=== PATIENT | female | born 2000 | race Caucasian/White ===

== ENCOUNTER 2018-03-30 11:26 | Observation (INO) | payer MEDICAID ==
[~2018-03-30] VITALS: Ht 160 cm; Wt 75.3 kg
[2018-03-30] MEDS ORDERED: FOLI-43 PO (12:29)
[2018-03-30] MEDS ORDERED: PREN-99 PO (12:32)
== END 2018-03-30 13:45 | disposition home or self-care (01) ==
LOC: L&D 11:26
PROVIDERS: ADMIT Obstetrics & Gynecology; ATTEND Obstetrics & Gynecology
DX: O36.8130 Decreased fetal movements, third trimester, not applicable or unspecified (principal); Z3A.37 37 weeks gestation of pregnancy
CPT/HCPCS: 76815; 76818; 99281; G0378

== ENCOUNTER 2018-04-03 19:03 | Observation (INO) | payer OTHER ==
[~2018-04-03] VITALS: Ht 154.9 cm; Wt 76.2 kg
[~2018-04-03 19:03] MED LIST: FOLI-43 PO; PREN-99 PO
== END 2018-04-03 20:20 | disposition home or self-care (01) ==
LOC: L&D 19:03
PROVIDERS: ADMIT Obstetrics & Gynecology; ATTEND Obstetrics & Gynecology
DX: O26.893 Other specified pregnancy related conditions, third trimester (principal); N89.8 Other specified noninflammatory disorders of vagina; R10.9 Unspecified abdominal pain; O48.0 Post-term pregnancy; Z3A.40 40 weeks gestation of pregnancy
CPT/HCPCS: 99281; G0378

== ENCOUNTER 2018-04-04 08:08 | Inpatient (IN) | payer OTHER ==
[~2018-04-04] VITALS: Ht 157.5 cm; Wt 76.2 kg
[2018-04-04] MEDS ORDERED: LACTATED RINGERS 1,000 ML IV SCH (09:34)
[2018-04-04] MEDS ORDERED: DEXT 5%/LR + PITOCIN 20UNITS/L 1,000 ML IV SCH ×3 (09:34→22:54)
[2018-04-04] MEDS ORDERED: BUTORPHANOL TARTRATE 2 MG/ML VIAL IV PRN (09:45)
[2018-04-04] MEDS ORDERED: METHYLERGONOVINE MALEATE 0.2 MG/ML IM PRN (09:45)
[2018-04-04] MEDS ORDERED: NALOXONE HCL 0.4 MG/ML 1ML VIAL IM PRN (09:45)
[2018-04-04] MEDS ORDERED: LIDOCAINE HCL 1% 20ML VIAL (Pyxis) INJ INFIL SCH (09:45)
[2018-04-04] MEDS ORDERED: CARBOPROST TROMETHAMINE 250 MCG/ML AMPUL IM PRN (09:45)
[2018-04-04 09:52] LABS: BASOPHILS % 0.5 % (0.0-2.0); EOSINOPHILS % 1.1 % (0.0-5.0); HEMATOCRIT. 35.4 % (36.0-48.0); HEMOGLOBIN. 11.8 g/dL (12.0-16.0); LYMPHOCYTES % 19.7 % (20.0-50.0); MEAN CORPUSCULAR HEMOGLOBIN 27.2 pg (28.0-32.0); MEAN CORPUSCULAR VOLUME 81.6 fL (81.0-99.0); MEAN PLATELET VOLUME 10.1 fl (7.4-10.4); NEUTROPHILS % 69.7 % (40.0-76.0); PLATELET 186 x1000/uL (130-400); RED BLOOD CELL COUNT 4.34 mill/uL (4.2-5.4)
[2018-04-04 10:10] LABS: PROTHROMBIN TIME 9.9 sec (9.4-11.6)
[2018-04-04 10:15] LABS: CLARITY URINE CLEAR (CLEAR); COLOR URINE YELLOW (YELLOW); KETONES URINE NEGATIVE (NEGATIVE); LEUKOCYTE ESTERASE URINE NEGATIVE (NEGATIVE); NITRITE URINE NEGATIVE (NEGATIVE); OCCULT BLOOD URINE NEGATIVE (NEGATIVE); PH URINE 6.5 (4.5-8.0); PROTEIN URINE NEGATIVE (NEGATIVE); UROBILINOGEN URINE 0.2 E.U./dL (0.2-1.0)
[2018-04-04] MEDS: LACTATED RINGERS 1,000 ML IV SCH ×3 (10:23→19:55)
[2018-04-04 10:44] LABS: *AMPHETAMINES SCREEN URINE NEGATIVE (NEGATIVE); *BARBITURATES SCREEN URINE NEGATIVE (NEGATIVE); *BENZODIAZEPINES SCREEN URINE NEGATIVE (NEGATIVE); *COCAINE SCREEN URINE NEGATIVE (NEGATIVE); CANNABINOID URINE SCREEN NEGATIVE (NEGATIVE); METHADONE URINE SCREEN NEGATIVE (NEGATIVE); OPIATES URINE SCREEN NEGATIVE (NEGATIVE)
[2018-04-04 10:45] LABS: PHENCYCLIDINE URINE SCREEN NEGATIVE (NEGATIVE)
[2018-04-04 12:30] LABS: HEPATITIS B SURFACE ANTIGEN NEGATIVE; RUBELLA IGG 55.1 IU/mL (4.99-10)
[2018-04-04] MEDS ORDERED: CITRIC ACID/SODIUM CITRATE SOLN 30ML UDC PO NR (19:45)
[2018-04-04] MEDS ORDERED: LIDOCAINE HCL 2%/EPINEPHRINE/PF 10 ML VIAL ONE ×2 (20:26→21:25)
[2018-04-04] MEDS ORDERED: SUCCINYLCHOLINE CHLORIDE 200MG/10ML VIAL IV ONE (20:26)
[2018-04-04] MEDS ORDERED: ETOMIDATE 2MG/ML 10ML VIAL IV ONE (20:26)
[2018-04-04] MEDS ORDERED: EPHEDRINE SULFATE 50MG/ML VIAL ONE (21:16)
[2018-04-04] MEDS ORDERED: ONDANSETRON HCL 4MG/2ML VIAL ONE (21:24)
[2018-04-04] MEDS ORDERED: FENTANYL CITRATE/PF 50MCG/ML 2ML VIAL ONE (21:26)
[2018-04-04] MEDS ORDERED: MORPHINE SULFATE/PF 1MG/ML 10ML AMP ONE (21:28)
[2018-04-04] MEDS ORDERED: LIDOCAINE HCL 2%/EPINEPHRINE/PF 10 ML VIAL INJ SCH (21:30)
[2018-04-04] MEDS ORDERED: ONDANSETRON HCL 4MG/2ML VIAL IV PRN (23:00)
[2018-04-04] MEDS ORDERED: DIPHENHYDRAMINE 25MG CAPSULE PO PRN (23:00)
[2018-04-04] MEDS ORDERED: RHO(D) IMMUNE GLOBULIN 300 MCG/SYR IM PRN (23:00)
[2018-04-04] MEDS ORDERED: LANOLIN OINT 0.25 GM TUBE TOP PRN (23:00)
[2018-04-05] VITALS (7 sets, daily range): BP systolic 101–114; BP diastolic 54–71
[2018-04-05] MEDS ORDERED: DIPHENHYDRAMINE 50MG/ML VIAL IV SCH (04:38)
[2018-04-05 07:14] LABS: BASOPHILS % 0.3 % (0.0-2.0); EOSINOPHILS % 0.5 % (0.0-5.0); HEMATOCRIT. 27.7 % (36.0-48.0); HEMOGLOBIN. 9.5 g/dL (12.0-16.0); LYMPHOCYTES % 15.1 % (20.0-50.0); MEAN CORPUSCULAR HEMOGLOBIN 28.2 pg (28.0-32.0); MEAN CORPUSCULAR VOLUME 81.8 fL (81.0-99.0); MONOCYTES % 8.1 % (2.0-8.0); PLATELET 148 x1000/uL (130-400); RED BLOOD CELL COUNT 3.39 mill/uL (4.2-5.4); RED CELL DISTRIBUTION WIDTH 15.4 % (11.6-14.6)
[2018-04-05] MEDS: PRENATAL VIT/FE FUMARATE/FA TABLET PO SCH (08:41)
[2018-04-05] MEDS: IBUPROFEN 400MG TABLET PO PRN (08:42)
[2018-04-05] MEDS: ACETAMINOPHEN WITH CODEINE 300/30MG TABLET PO PRN (19:01)
[2018-04-06] MEDS: ACETAMINOPHEN WITH CODEINE 300/30MG TABLET PO PRN ×2 (04:24→15:53)
[2018-04-06 06:00] VITALS: BP 109/62
[2018-04-06] MEDS: PRENATAL VIT/FE FUMARATE/FA TABLET PO SCH (09:37)
[2018-04-06] MEDS: IBUPROFEN 400MG TABLET PO PRN (09:37)
[2018-04-06 14:38] VITALS: BP 106/70
[2018-04-06] MEDS ORDERED: ONDANSETRON HCL 4MG/2ML VIAL IV NR (15:15)
[2018-04-06] MEDS ORDERED: ONDANSETRON HCL 4MG/2ML VIAL IM NR (16:00)
[2018-04-06 22:00] VITALS: BP 113/72
[2018-04-07 04:00] VITALS: BP 110/72
[2018-04-07 07:34] VITALS: BP 99/60
[2018-04-07] MEDS: PRENATAL VIT/FE FUMARATE/FA TABLET PO SCH (08:28)
[2018-04-07] MEDS ORDERED: TETANUS, DIPHTHERIA, PERTUSSIS VAC/PF 0.5ML (>7YR OLD) IM ONE (11:00)
== END 2018-04-07 12:50 | disposition home or self-care (01) | DRG 540 ==
LOC: L&D 08:08 → OBSVTOIN 21:21 → 7EST PP/OB 23:50
PROVIDERS: ADMIT Obstetrics & Gynecology; ATTEND Obstetrics & Gynecology
PROC: 10D00Z1 Extraction of Products of Conception, Low, Open Approach (ICD-10-PCS; principal; 2018-04-04 21:50)
DX: O77.0 Labor and delivery complicated by meconium in amniotic fluid (principal); D62 Acute posthemorrhagic anemia; O99.02 Anemia complicating childbirth; Z53.29 Procedure and treatment not carried out because of patient's decision for other reasons; Z37.0 Single live birth; Z3A.40 40 weeks gestation of pregnancy
CPT/HCPCS: 36415; 80305; 81003; 85025; 85610; 85730; 86592; 86703; 86762; 86850; 86900; 87340; 88307; 90715; G0378; J0330; J1200; J2274; J2405; J2590; J3010; J3490; J7120; Q0163; A4315

== ENCOUNTER 2022-07-03 02:04 | Emergency (ER) | payer MEDICAID, OTHER ==
[~2022-07-03] VITALS: Ht 160 cm; Wt 85.0 kg
[2022-07-03] MEDS ORDERED: ACETAMINOPHEN 500MG TABLET PO ONE (04:15)
[2022-07-03 04:41] LABS: BASOPHILS % 0.7 % (0.0-2.0); CHLORIDE 105 mEq/L (98-107); EOSINOPHILS % 1.3 % (0.0-5.0); HEMATOCRIT. 39.4 % (36.0-48.0); HEMOGLOBIN. 13.1 g/dL (12.0-16.0); LYMPHOCYTES % 33.5 % (20.0-50.0); MEAN CORPUSCULAR HEMOGLOBIN 26.9 pg (28.0-32.0); MEAN CORPUSCULAR VOLUME 80.6 fL (81.0-99.0); MEAN PLATELET VOLUME 8.9 fl (7.4-10.4); MONOCYTES % 6.8 % (2.0-8.0); NEUTROPHILS % 57.7 % (40.0-76.0); PLATELET 353 x1000/uL (130-400); RED BLOOD CELL COUNT 4.88 mill/uL (4.2-5.4); RED CELL DISTRIBUTION WIDTH 16.4 % (11.6-14.6)
[2022-07-03 05:03] LABS: B-HCG QUANTITATIVE 5330 mIU/mL (<3)
[2022-07-03 05:10] LABS: CLARITY URINE CLOUDY (CLEAR); COLOR URINE YELLOW (YELLOW); KETONES URINE TRACE (NEGATIVE); LEUKOCYTE ESTERASE URINE 1+ (NEGATIVE); NITRITE URINE NEGATIVE (NEGATIVE); OCCULT BLOOD URINE NEGATIVE (NEGATIVE); PH URINE 5.5 (4.5-8.0); PROTEIN URINE NEGATIVE (NEGATIVE); SPECIFIC GRAVITY URINE 1.029 (1.005-1.030)
[2022-07-03] MEDS ORDERED: NITR-87 MT (05:25)
[2022-07-03] MEDS ORDERED: IRON1TAB68 MT (05:25)
[2022-07-03] MEDS ORDERED: TOPUD MT (05:25)
[2022-07-03 05:34] VITALS: BP 124/78
== END 2022-07-03 05:35 | disposition home or self-care (01) ==
LOC: ER 02:04
DX: O34.81 Maternal care for other abnormalities of pelvic organs, first trimester (principal); N83.201 Unspecified ovarian cyst, right side; Z3A.01 Less than 8 weeks gestation of pregnancy
CPT/HCPCS: 36415; 76801; 80053; 81003; 81025; 84702; 85025; 86900; 99284